=== PATIENT | female | born 2005 | race Caucasian/White ===

== ENCOUNTER 2025-04-01 03:45 | Emergency (ER) | payer SELFPAY ==
[~2025-04-01] VITALS: Ht 167.6 cm; Wt 80.2 kg
[2025-04-01 03:53] VITALS: BP 122/78; TEMP 37; O2SAT 99
[2025-04-01 03:54] VITALS: PULSE 98; RESP 16; O2SAT 95
[2025-04-01 04:39] LABS: CLARITY URINE CLOUDY (CLEAR); COLOR URINE DARK YELLOW (YELLOW); GLUCOSE URINE NEGATIVE (NEGATIVE); KETONES URINE TRACE (NEGATIVE); LEUKOCYTE ESTERASE URINE TRACE (NEGATIVE); NITRITE URINE NEGATIVE (NEGATIVE); OCCULT BLOOD URINE NEGATIVE (NEGATIVE); PH URINE 6.0 (4.5-8.0); PROTEIN URINE 2+ (NEGATIVE); SPECIFIC GRAVITY URINE 1.023 (1.005-1.030); UROBILINOGEN URINE 1.0 E.U./dL (0.2-1.0)
[2025-04-01 05:28] LABS: SQUAMOUS EPITHELIAL CELL URINE 3+ /lpf (RARE/1+)
[2025-04-01 05:30] LABS: RBC URINE NONE SEEN /hpf (0-2); WBC URINE 0-2 /hpf (0-2)
[2025-04-01 05:33] LABS: BACTERIA URINE 1+
== END 2025-04-01 04:43 | disposition left against medical advice (07) ==
LOC: ER 03:45
DX: R10.9 Unspecified abdominal pain (principal); Z79.899 Other long term (current) drug therapy
CPT/HCPCS: 81003; 81025; 99283